=== PATIENT | male | born 1935 | race Caucasian/White ===

== ENCOUNTER 2018-11-28 13:45 | Day surgery (SDC) | payer MEDICARE ==
[~2018-11-28] VITALS: Ht 180.3 cm; Wt 94.5 kg
[~2018-11-28 13:45] MED LIST: ACYC-114 PO; AMIO100T4 PO; ASPI-496 PO; CARV3.122 PO; LISI2.5T PO; LOVA10TA PO; TAMS-11 PO
[2018-11-28] MEDS ORDERED: LACTATED RINGERS 1,000 ML IV SCH (14:25)
[2018-11-28 14:26] VITALS: BP 148/94
[2018-11-28] MEDS ORDERED: FENTANYL PF 100 MCG/2ML ONE (17:04)
[2018-11-28] MEDS ORDERED: MIDAZOLAM 1 MG/ML, 2ML ONE (17:04)
[2018-11-28] MEDS ORDERED: LIDOCAINE-MPF 2% ,5ML ONE (17:05)
[2018-11-28] MEDS ORDERED: PROPOFOL 10 MG/ML, 20ML ONE (17:05)
[2018-11-28] MEDS ORDERED: ROCURONIUM 10MG/ML,5ML ONE (18:07)
[2018-11-28] MEDS ORDERED: CEFAZOLIN 1,000 MG ONE (18:07)
[2018-11-28] MEDS ORDERED: DEXAMETHASONE 4 MG/ML, 1ML ONE (18:07)
[2018-11-28] MEDS ORDERED: ONDANSETRON 2MG/ML, 2ML ONE (18:07)
[2018-11-28] MEDS ORDERED: PHENYLEPHRINE 10 MG/ML ONE (18:07)
[2018-11-28] MEDS ORDERED: SUGAMMADEX 200 MG/2 ML IVPush ONE (18:58)
[2018-11-28] MEDS ORDERED: HYDROmorphone 2 MG/ML, 1ML IVPush PRN (19:00)
[2018-11-28] MEDS ORDERED: HALOPERIDOL 5 MG/ML IV PRN (19:00)
[2018-11-28] MEDS ORDERED: OXYcodone 5 MG/5 ML ORAL.SOL UDC PO PRN (19:00)
[2018-11-28] MEDS ORDERED: PROMETHAZINE 25 MG/ML, 1ML IV PRN (19:00)
[2018-11-28] MEDS ORDERED: ACETAMINOPHEN 325 MG TABLET PO PRN (19:00)
[2018-11-28] MEDS ORDERED: FENTANYL PF 100 MCG/2ML IV PRN (19:00)
[2018-11-28] MEDS ORDERED: FINA5TAB4 PO (20:13)
== END 2018-11-28 22:55 | disposition home or self-care (01) ==
LOC: OR 13:45 → 4NOR 19:55 → OR 22:55
PROVIDERS: ATTEND Urology
DX: D68.8 Other specified coagulation defects (principal); N40.0 Benign prostatic hyperplasia without lower urinary tract symptoms; I10 Essential (primary) hypertension; G47.33 Obstructive sleep apnea (adult) (pediatric); Z79.82 Long term (current) use of aspirin; Z96.641 Presence of right artificial hip joint; Z96.653 Presence of artificial knee joint, bilateral; Z98.890 Other specified postprocedural states; Z88.8 Allergy status to other drugs, medicaments and biological substances
CPT/HCPCS: 52234; 88305; 93005; J0690; J1100; J2250; J2370; J2405; J2704; J3010; J3490; J7120; G0378